=== PATIENT | male | born 1960 | race Caucasian/White ===

== ENCOUNTER 2018-12-07 09:34 | Day surgery (SDC) | payer OTHER ==
[~2018-12-07] VITALS: Ht 162.6 cm; Wt 86.6 kg
[2018-12-07 10:32] VITALS: Ht 162.6 cm; Wt 86.6 kg
[2018-12-07] MEDS ORDERED: SYNTHROID (10:36)
[2018-12-07] MEDS ORDERED: LAMOTRIGINE (10:36)
--- NOTE | 2018-12-07 10:55 | PREAC ---
Date/Time of Note Date/Time of Note DATE: 12/07/18 TIME: 10:54 Anesthesia Eval and Record Evaluation Time Pre-Procedure Interview DATE: 12/07/18 TIME: 10:54 Age 58 Sex male NPO: 8 hrs Preoperative diagnosis screening Planned procedure colonoscopy Past Medical History Past Medical History: Includes Cardio: Dyslipidemia Endo: Hypothyroid GI: Other (fatty liver) Psych: Depression Surgery & Anesthesia Issues No known issue Meds Anticoagulation: No Beta Yousuf within 24 hr: No Reason Beta Yousuf not given: Pt. not on B-Yousuf Reported Medications [Lamotrigine] No Conflict Check 12/07/18 [Synthroid] No Conflict Check 12/07/18 Meds reviewed: Yes Allergies Coded Allergies: Penicillins (Verified Allergy, Unknown, 12/07/18) Allergies Reviewed: Yes Labs/Studies Labs Reviewed: Reviewed by anesthesiologist test: N/A Studies: ECG (n/a), CXR (n/a) Pre-procedure Exam Airway: Adequate mouth opening Mallampati: Mallampati I Teeth: Normal Lung: Normal Heart: Normal ASA Physical Status ASA physical status: 2 Emergency: None Planned Anesthetic General/MAC: MAC Planned Pain Management Parenteral pain med Pre-operative Attestations Prior to commencing anesthesia and surgery, the patient was re-evaluated, there was verification of: *The patient's identity *The results of appropriate recent lab work and preoperative vital signs *The above evaluation not changing prior to induction *Anesthetic plan, risk benefits, alternative and complications discussed with patient/family; questions answered; patient/family understands, accepts and wishes to proceed. BERTRAM ROGERS MD December 07, 2018 10:55
[2018-12-07 10:56] VITALS: BP 120/63; PULSE 67; RESP 16
[2018-12-07] MEDS ORDERED: ONDANSETRON 4 MG INJ IV PRN (11:00)
[2018-12-07] MEDS ORDERED: FENTAnyl 50 MCG/ML VIAL IV PRN (11:00)
[2018-12-07] MEDS ORDERED: PROPOFOL 20 ML ONE (11:09)
[2018-12-07] MEDS ORDERED: FENTAnyl 50 MCG/ML VIAL ONE (11:09)
[2018-12-07 12:01] VITALS: BP 126/64; PULSE 63; RESP 15
--- NOTE | 2018-12-07 13:06 | PAC ---
Date/Time of Note Date/Time of Note DATE: 12/07/18 TIME: 13:06 Post-Anesthesia Notes Post-Anesthesia Note Last documented vital signs Vital Signs Date Temp Pulse Resp B/P (MAP) Pulse Ox O2 O2 Flow FiO2 Time Delivery Rate 12/07/18 98.2 63 15 126/64 95 Room Air 12:01 (84) 12/07/18 98.2 10:56 Activity: WNL Respiratory function: WNL Cardiovascular function: WNL Mental status: Baseline Pain reasonably controlled: Yes Hydration appropriate: Yes Nausea/Vomiting absent: No BERTRAM ROGERS MD December 07, 2018 13:06
== END 2018-12-07 12:57 | disposition home or self-care (01) ==
LOC: GIL 09:34
PROVIDERS: ATTEND Internal Medicine Gastroenterology
DX: Z12.11 Encounter for screening for malignant neoplasm of colon (principal); K64.8 Other hemorrhoids
CPT/HCPCS: 45378; J3010